=== PATIENT | male | born 1960 | race Caucasian/White ===

== ENCOUNTER 2016-06-17 23:12 | Outpatient (CLI) | payer MEDICAID | END 2016-06-17 23:13 | disposition critical access hospital (66) | DX: M79.672 Pain in left foot (principal); M79.671 Pain in right foot | CPT/HCPCS: A0425; A0427 ==

== ENCOUNTER 2016-06-17 23:28 | Emergency (ER) | payer MEDICAID ==
[2016-06-17] MEDS ORDERED: SODIUM CHLORIDE 0.9% 1,000 ML IV STA (23:47)
[2016-06-18] MEDS ORDERED: PIPERACILLIN/TAZOBACTAM 3.375 GM in SODIUM CHLORIDE 0.9% MINIBAG 100 ML IV STA (01:02)
[2016-06-18] MEDS ORDERED: SODIUM CHLORIDE 0.9% 500 ML IV STA ×2 (01:17→03:13)
[2016-06-18] MEDS ORDERED: SODIUM CHLORIDE 0.9% 1,000 ML IV STA (04:33)
[2016-06-18] MEDS ORDERED: VANCOMYCIN INJ 1 GM in SODIUM CHLORIDE 0.9% 250 ML IV STA (04:34)
[2016-06-18] MEDS ORDERED: INSULIN REGULAR HUMAN 100 UNIT/1 ML 10 ML MDV IVP STA (04:39)
[2016-06-18] MEDS ORDERED: INSULIN REGULAR HUMAN 100 UNIT/1 ML 10 ML MDV ONE (04:42)
[2016-06-18] MEDS ORDERED: VANCOMYCIN 1 GM VIAL ONE (04:48)
== END 2016-06-18 07:55 | disposition short-term general hospital (02) ==
DX: E16.2 Hypoglycemia, unspecified (principal); D64.9 Anemia, unspecified; I95.9 Hypotension, unspecified; R00.0 Tachycardia, unspecified; D72.829 Elevated white blood cell count, unspecified; I96 Gangrene, not elsewhere classified; L97.523 Non-pressure chronic ulcer of other part of left foot with necrosis of muscle; L97.511 Non-pressure chronic ulcer of other part of right foot limited to breakdown of skin
CPT/HCPCS: 36415; 36430; 51702; 71010; 80048; 80053; 80306; 81001; 83605; 83690; 84484; 85025; 85610; 85730; 86850; 86900; 86901; 86920; 87040; 87077; 87181; 93005; 93010; 96361; 96365; 96366; 96375; 99285; J1815; J3370; P9016

== ENCOUNTER 2016-06-18 07:55 | Outpatient (CLI) | payer MEDICAID | END 2016-06-18 07:56 | disposition short-term general hospital (02) | DX: D64.9 Anemia, unspecified (principal) | CPT/HCPCS: A0425; A0426 ==